=== PATIENT | female | born 1950 | race Caucasian/White ===

== ENCOUNTER 2018-03-24 15:12 | Emergency (ER) | payer MEDICARE, OTHER ==
[2018-03-24 15:49] VITALS: BP 110/58
--- NOTE | 2018-03-24 16:46 | RAD ---
INDICATION: Left knee pain COMPARISON: None TECHNIQUE: AP, lateral, and oblique views were obtained. FINDINGS: There is no acute fracture. The knee articulates normally. There is no suprapatellar joint effusion. There is prominent soft tissue swelling anterior to the patella, however. IMPRESSION: SOFT TISSUE SWELLING ANTERIOR TO PATELLA.
--- NOTE | 2018-03-24 17:08 | UC ---
Maria A Sanders Emily, scribed for Frankie David MD on 03/24/18 at 1616 . Lower Extremity/Ankle HPI - HPI Summary HPI Summary: This patient is a 67 year old F presenting to urgent care with a chief complaint of L knee pain that began on 03/20/2018 after she bumped her left knee. Pt reports also falling and hitting the same knee on 03/18/2018. The patient rates the pain 6/10 in severity. Symptoms aggravated by ambulation. Symptoms alleviated by ice. Patient reports swelling and bruising. Medications reviewed. Allergies reviewed. - History of Current Complaint Chief Complaint: UCLowerExtremity Stated Complaint: FELL LEFT KNEE INJURY Time Seen by Provider: 03/24/18 15:59 Hx Obtained From: Patient Onset/Duration: Sudden Onset, Lasting Days, Still Present Severity Initially: Moderate Severity Currently: Moderate Pain Intensity: 6 Pain Scale Used: 0-10 Numeric Aggravating Factor(s): Ambulation Alleviating Factor(s): Ice Able to Bear Weight: Yes - Allergies/Home Medications Allergies/Adverse Reactions: Allergies Allergy/AdvReac Type Severity Reaction Status Date / Time No Known Allergies Allergy Verified 03/24/18 15:50 PMH/Surg Hx/FS Hx/Imm Hx - Additional Past Medical History Additional PMH: MUSCULOSKELETAL: arthritis Previously Healthy: No Psychological History: Anxiety - Surgical History Surgical History: Yes Surgery Procedure, Year, and Place: NECK LIFT 09/12, ORIF RIGHT WRIST 2015 - Family History Known Family History: Positive: Other - Breast CA - Social History Occupation: Retired Lives: With Family Alcohol Use: Weekly Substance Use Type: None Smoking Status (MU): Never Smoked Tobacco Review of Systems Skin: Bruising Musculoskeletal: Other: - Positivel L knee pain and swelling All Other Systems Reviewed And Are Negative: Yes Physical Exam - Summary Physical Exam Summary: General: well-appearing, no pain distress Skin: warm, color reflects adequate perfusion, dry Head: normal Eyes: EOMI, ANDREW ENT: normal Neck: supple, nontender Respiratory: CTA, breath sounds present Cardiovascular: RRR Abdomen: soft, nontender Bowel: present Musculoskeletal: Prepatellar swelling, not hot to touch, no erythema, mild left knee fusion, the knee is tender over the patella otherwise no tenderness, no laxity on anterior draw and posterior draw, negative mcmurreys Neurological: sensory/motor intact, A&O x3 Psychological: affect/mood appropriate Triage Information Reviewed: Yes Vital Signs: Initial Vital Signs Temp 97.8 F 03/24/18 15:43 Pulse 66 03/24/18 15:43 Resp 16 03/24/18 15:43 BP 110/58 03/24/18 15:43 Pulse Ox 100 03/24/18 15:43 Vital Signs Reviewed: Yes Diagnostics - Radiology Knee XR Radiology Interpretation Completed By: Radiologist - Knee XR reveals, per radiologist, soft tissue swelling anterior to patella. ED physician has reviewed this radiology report. Re-Evaluation - Re-Evaluation First Eval Re-Evaluation Time: 16:57 Change: Unchanged Comment: Discussed results with pt Lower Extremity Course/Dx - Course Course Of Treatment: DISCUSSED X-RAY RESULTS AND TREATMENT WITH THE PATIENT. NO SIGN OF INFECTION ON EXAM OR BY HISTORY. F/U ORTHOPEDICS IF NOT COMPLETELY IMPROVED. - Differential Dx/Diagnosis Provider Diagnoses: LEFT KNEE PRE PATELLAR BURSITIS. LEFT KNEE PAIN Discharge - Sign-Out/Discharge Documenting (check all that apply): Discharge/Admit/Transfer - Discharge Plan Condition: Stable Disposition: HOME Patient Education Materials: Knee Bursitis (ED) Referrals: [facility] [Outside] Sigifredo Hernandez MD [Primary Care Provider] - Additional Instructions: FOLLOW UP WITH ORTHOPEDICS IF NOT COMPLETELY IMPROVED OR YOUR CONDITION WORSENS. GET RECHECKED FOR ANY WORSENING OF YOUR CONDITION; FEVER, REDNESS, PAIN, YOU FEEL ILL OR QUESTIONS OR CONCERNS. - Billing Disposition and Condition Condition: STABLE Disposition: HOME The documentation as recorded by the Maria A joy Emily accurately reflects the service I personally performed and the decisions made by me, Frankie David MD.
== END 2018-03-24 17:25 | disposition home or self-care (01) ==
LOC: UCEAST 15:12
DX: M70.42 Prepatellar bursitis, left knee (principal); Y93.89 Activity, other specified; M25.662 Stiffness of left knee, not elsewhere classified; F41.9 Anxiety disorder, unspecified
CPT/HCPCS: 99211; G0463